=== PATIENT | female | born 1995 | race Caucasian/White ===

== ENCOUNTER 2017-03-01 13:10 | Emergency (ER) | payer OTHER, MEDICARE ==
[~2017-03-01] VITALS: Ht 157.5 cm; Wt 93.0 kg
[2017-03-01 13:14] VITALS: BP 149/81; PULSE 153; RESP 20; TEMP 97.9
--- NOTE | 2017-03-01 13:36 | PD ---
HPI Chief Complaint: Seizure Time Seen by Provider: 13:33 Travel History International Travel<30 days: No Contact w/Intl Traveler<30days: No Traveled to known affect area: No History of Present Illness HPI 21-year-old female that presents to the ED for evaluation of possible seizure. Patient had a possible seizure today will working in [employer]. Patient works at this facility. Patient had a witnessed seizure that lasted about 2 minutes where she lost consciousness and hit her head. She per report from people around her had rigors as well as some seizure-like activity as well as movements of the eye. Per patient she does have a history of seizures in the past but states that she takes nothing because she was told by her doctor that she did not have any seizures and was taken off all her medications. She has not taken anything for years. She does have a history of some underlying mental illness. She has an allergy to latex and Zithromax. She denies any drug abuse or alcohol abuse. She denies any chest pain or shortness of breath. She denies any pain of any kind. She does appear to be anxious on examination. PFSH Past Medical History ?: Not Social History Alcohol Use: No Tobacco Use: No Substance Use: No Allergies-Medications (Allergen,Severity, Reaction): Coded Allergies: Latex (Verified Allergy, Intermediate, 03/01/17) Zithromax (Verified Allergy, Intermediate, HIVES, 03/01/17) Review of Systems Except as stated in HPI: all other systems reviewed are Neg Physical Exam Narrative GENERAL: SKIN: Warm and dry. HEAD: Atraumatic. Normocephalic. EYES: Pupils equal and round 4 mm reactive to light and accommodation. No scleral icterus. No injection or drainage. ENT: No nasal bleeding or discharge. Mucous membranes pink and moist. Tongue is midline. No uvula deviation. NECK: Trachea midline. No JVD. CARDIOVASCULAR: Regular rate and rhythm. No murmurs, S3, S4. RESPIRATORY: No accessory muscle use. Clear to auscultation. Breath sounds equal bilaterally. GASTROINTESTINAL: Abdomen soft, non-tender, nondistended. Hepatic and splenic margins not palpable. MUSCULOSKELETAL: Extremities without clubbing, cyanosis, or edema. No obvious deformities. Full range of motion of the upper and lower extremities bilaterally. 2+ pulses bilaterally. No lumbar, thoracic, cervical spine tenderness to palpation. NEUROLOGICAL: Awake and alert and oriented 4. No obvious cranial nerve deficits. Motor grossly within normal limits. Five out of 5 muscle strength in the arms and legs. Normal speech. PSYCHIATRIC: Anxious mood and affect; insight and judgment normal. Data Data Last Documented VS Vital Signs Date Time Temp Pulse Resp B/P Pulse Ox O2 Delivery O2 Flow Rate FiO2 03/01/17 13:14 97.9 153 20 149/[address] Brain W/O Iv Contrast(Rout) (03/01/17 13:13) Ct Cerv Spine W/O Contrast (03/01/17 13:13) Electrocardiogram (03/01/17 13:13) Complete Blood Count With Diff (03/01/17 13:13) Basic Metabolic Panel (Bmp) (03/01/17 13:13) Urinalysis - C+S If Indicated (03/01/17 13:13) Magnesium (Mg) (03/01/17 13:13) Thyroid Stimulating Hormone (03/01/17 13:13) Iv Access Insert/Monitor (03/01/17 13:13) Ed Urine Pregnancytest Poc (03/01/17 13:13) Labs Laboratory Tests Test 03/01/17 03/01/17 13:45 13:49 Urine Color YELLOW Urine Turbidity CLEAR Urine pH 5.0 Urine Specific [place] 1.022 Urine Protein TRACE mg/dL Urine Glucose (UA) 1000 mg/dL Urine Ketones NEG mg/dL Urine Occult Blood SMALL Urine Nitrite NEG Urine Bilirubin NEG Urine Urobilinogen LESS THAN 2.0 MG/DL Urine Leukocyte Esterase NEG Urine RBC 1 /hpf Urine WBC 2 /hpf Urine Squamous Epithelial 1 /hpf Cells Urine Hyaline Casts 1 /lpf Urine Mucus FEW /lpf Urine Yeast (Budding) RARE Microscopic Urinalysis Comment CULT NOT INDICATED White Blood Count 9.1 TH/MM3 Red Blood Count 5.72 MIL/MM3 Hemoglobin 14.2 GM/DL Hematocrit 43.4 % Mean Corpuscular Volume 75.8 FL Mean Corpuscular Hemoglobin 24.9 PG Mean Corpuscular Hemoglobin 32.8 % Concent Red Cell Distribution Width 14.8 % Platelet Count 169 TH/MM3 Mean Platelet Volume 8.6 FL Neutrophils (%) (Auto) 69.3 % Lymphocytes (%) (Auto) 23.4 % Monocytes (%) (Auto) 6.4 % Eosinophils (%) (Auto) 0.4 % Basophils (%) (Auto) 0.5 % Neutrophils # (Auto) 6.3 TH/MM3 Lymphocytes # (Auto) 2.1 TH/MM3 Monocytes # (Auto) 0.6 TH/MM3 Eosinophils # (Auto) 0.0 TH/MM3 Basophils # (Auto) 0.0 TH/MM3 CBC Comment DIFF FINAL Differential Comment Sodium Level 141 MEQ/L Potassium Level 3.6 MEQ/L Chloride Level 103 MEQ/L Carbon Dioxide Level 26.0 MEQ/L Anion Gap 12 MEQ/L Blood Urea Nitrogen 12 MG/DL Creatinine 0.55 MG/DL Estimat Glomerular Filtration 138 ML/MIN Rate Random Glucose 73 MG/DL Calcium Level 9.8 MG/DL Magnesium Level 2.1 MG/DL Thyroid Stimulating Hormone LESS THAN 3rd Gen 0.005 uIU/ML MDM Medical Decision Making Medical Screen Exam Complete: Yes Emergency Medical Condition: Yes Medical Record Reviewed: Yes Interpretation(s) CBC & BMP Diagram 03/01/17 13:49 TSH is low. Last Impressions Head CT 03/01/17 1313 Signed Impressions: Service Date/Time: Wednesday, March 01, 2017 13:26 - CONCLUSION: No acute abnormality is identified. Christian Pacheco MD Cervical Spine CT 03/01/17 1313 Signed Impressions: Service Date/Time: Wednesday, March 01, 2017 13:26 - CONCLUSION: 1. No acute cervical spine abnormality is identified. 2. Possible disc protrusion at C5- C6. Christian Pacheco MD Differential Diagnosis Seizure versus seizure like activity versus syncope versus presyncope Narrative Course 21-year-old female that presents to the ED for evaluation of possible seizure. Patient was properly examined and was found to have signs and symptoms consistent with possible seizure. Labs and imaging were ordered. Labs and imaging showed no sign of acute disease other than low TSH but patient does have a history of thyroid disease taking tyroid medication. Patient has had no more seizure events. Patient adamant she wants to go back to work. At this time I recommend follow-up with PCP as well as neurologist. This was discussed in my attending who agrees with plan. Instructed to not drive, operative heavy machinery, use ladders or go improves until medically cleared by neurologist. See ED worsening symptoms. Before patient was discharged she did complain that she's been having some ear pain on the left on and off for a couple weeks. Patient has not seen anybody for this. I evaluated the ear and she does have erythema on the TM. No sign of bulging. I will treat this with amoxicillin to cover for infection. She is in agreement with this plan. Patient was given note for work. She understands reasons to come back. Diagnosis Primary Impression: Seizure Additional Impression: Otitis media Qualified Code: H66.92 - Left otitis media, unspecified chronicity, unspecified otitis media type Referrals: Jon Zayas MD Patient Instructions: General Instructions Additional Instructions: Follow with PCP or neurologist for clearance and evaluation of the seizures. See ED for worsening symptoms. Take her medications prescribed by her doctor. Med/Other Pt SpecificInfo: No Change to Meds Scripts Amoxicillin 875 Mg [id number] Mg PO BID 10 Days Prov:Meenu Louise MD 03/01/17 Disposition: 01 DISCHARGE HOME Condition: Stable Olegario Penn March 01, 2017 13:36
--- NOTE | 2017-03-01 13:37 | RADRPT ---
EXAM DATE/TIME: 03/01/2017 13:26 [facility] COMPARISON: No previous studies available for comparison. INDICATIONS : Seizure. Possibly hit her head. Headache. RADIATION DOSE: 36.06 CTDIvol (mGy) MEDICAL HISTORY : None SURGICAL HISTORY : None. ENCOUNTER: Initial ACUITY: 1 day PAIN SCALE: 7/10 LOCATION: cranial TECHNIQUE: Multiple contiguous axial images were obtained of the head. Using automated exposure control and adj ustment of the mA and/or kV according to patient size, radiation dose was kept as low as reasonably a chievable to obtain optimal diagnostic quality images. FINDINGS: CEREBRUM: The ventricles are normal. No evidence of midline shift, mass lesion, hemorrhage or acute infarction . No extra-axial fluid collections are seen. POSTERIOR FOSSA: The cerebellum and brainstem demonstrate no abnormality. The 4th ventricle is midline. The cerebell opontine angle is unremarkable. EXTRACRANIAL: The visualized portion of the orbits is intact. SKULL: The calvaria is intact. No evidence of skull fracture. CONCLUSION: No acute abnormality is identified. Christian Pacheco MD on March 01, 2017 at 13:34 Board Certified Radiologist. This report was verified electronically.
--- NOTE | 2017-03-01 13:49 | RADRPT ---
EXAM DATE/TIME: 03/01/2017 13:26 [facility] COMPARISON: CT BRAIN W/O CONTRAST, March 01, 2017, 13:26. INDICATIONS : Seizure. Possibly hit her head. Headache. RADIATION DOSE: 36.06 CTDIvol (mGy) MEDICAL HISTORY : Seizures. SURGICAL HISTORY : None. ENCOUNTER: Initial ACUITY: 1 day PAIN SCALE: 7/10 LOCATION: neck TECHNIQUE: Volumetric scanning of the cervical spine was performed. Multiplanar reconstructions in the sagittal, coronal and oblique axial planes were performed. Using automated exposure control and adjustment o f the mA and/or kV according to patient size, radiation dose was kept as low as reasonably achievable to obtain optimal diagnostic quality images. FINDINGS: There is normal sagittal spine alignment of the cervical spine. No anterolisthesis or retrolisthesis is present. The atlantoaxial relationship is within normal limits. There is no prevertebral soft tiss ue swelling present. No fracture or dislocation is identified. There is a central left paracentral di sc protrusion at C5-C6. The visualized portions of the posterior fossa, paraspinous soft tissues, and upper lung zones demons trate no acute abnormality. CONCLUSION: 1. No acute cervical spine abnormality is identified. 2. Possible disc protrusion at C5-C6. Christian Pacheco MD on March 01, 2017 at 13:44 Board Certified Radiologist. This report was verified electronically.
[2017-03-01 13:56] LABS: AUTOMATED NEUTROPHIL # 6.3 TH/MM3 (1.8-7.7); BASOPHIL % 0.5 % (0.0-2.0); EOSINOPHIL % 0.4 % (0.0-4.0); HEMATOCRIT 43.4 % (35.0-46.0); HEMO FLAGS DIFF FINAL; LYMPH % 23.4 % (9.0-44.0); LYMPHOCYTE # 2.1 TH/MM3 (1.0-4.8); MEAN CELL VOLUME 75.8 FL (80.0-100.0); MEAN CORPUSCULAR HEMOGLOBIN 24.9 PG (27.0-34.0); MEAN CORPUSCULAR HGB CONC 32.8 % (32.0-36.0); MONO % 6.4 % (0.0-8.0); NEUT % 69.3 % (16.0-70.0); PLATELET COUNT 169 TH/MM3 (150-450); RED BLOOD COUNT 5.72 MIL/MM3 (4.00-5.30); RED CELL DISTRIBUTION WIDTH 14.8 % (11.6-17.2); WHITE BLOOD COUNT 9.1 TH/MM3 (4.0-11.0)
[2017-03-01 14:09] LABS: BLOOD, URINE SMALL (NEG); COMMENT (UR) CULT NOT INDICATED; CULTURE IF INDICATED CULT NOT INDICATED; GLUCOSE,URINE 1000 mg/dL (NEG); HYALINE CAST, URINE 1 /lpf (RARE); KETONE, URINE NEG (NEG); MUCUS URINE FEW /lpf (OCC); NITRITE,URINE NEG (NEG); SQUAMOUS EPITHELIAL CELL URINE 1 /hpf (0-5); URINE COLOR YELLOW (YELLW/STRAW)
[2017-03-01 14:20] LABS: ANION GAP 12 MEQ/L (5-15); BLOOD UREA NITROGEN 12 MG/DL (7-18); CHLORIDE 103 MEQ/L (98-107); GLOMERULAR FILTRATION RATE 138 ML/MIN (>89); MAGNESIUM 2.1 MG/DL (1.5-2.5); POTASSIUM 3.6 MEQ/L (3.5-5.1); SODIUM (NA) 141 MEQ/L (136-145)
[2017-03-01] MEDS ORDERED: AMOX875T PO (14:51)
--- NOTE | 2017-03-01 17:07 | EKG ---
Date Performed: 03/01/2017 Time Performed: 14:17:21 PTAGE: 21 years EKG: SINUS TACHYCARDIA WITH SHORT IN INTERVAL Nonspecific ST-T wave changes ABNORMAL ECG NO PREVIOUS TRACING DOCTOR: Daryl Herrera Interpretating Date/Time 03/01/2017 17:05:24
== END 2017-03-01 15:00 | disposition home or self-care (01) ==
LOC: NEPE 13:10
DX: R56.9 Unspecified convulsions (principal); H66.92 Otitis media, unspecified, left ear; E07.9 Disorder of thyroid, unspecified
CPT/HCPCS: 70450; 72125; 80048; 81001; 83735; 84443; 84703; 85025; 93005; 99285

== ENCOUNTER 2017-03-20 11:32 | Emergency (ER) | payer OTHER, MEDICARE ==
[~2017-03-20 11:32] MED LIST: AMOX875T PO
[2017-03-20 11:35] VITALS: BP 137/87; PULSE 119; RESP 16; TEMP 98.1; O2SAT 97
[2017-03-20] MEDS ORDERED: LEVO125T4 PO (11:51)
[2017-03-20] MEDS ORDERED: METF1000 PO (11:51)
[2017-03-20] MEDS ORDERED: INSU1INJ14 SQ (11:51)
[2017-03-20] MEDS ORDERED: EMPA1TAB PO (11:51)
[2017-03-20] MEDS ORDERED: ALBI1INJ2 SQ (11:51)
[2017-03-20] MEDS ORDERED: FEXO15TA PO (11:52)
[2017-03-20] MEDS ORDERED: METH36 PO (11:52)
[2017-03-20] MEDS ORDERED: FLUT1SPR5 EACH NARE (11:52)
[2017-03-20] MEDS ORDERED: IBUPROFEN 800 MG TAB PO ONE (12:00)
--- NOTE | 2017-03-20 12:06 | PD ---
HPI Chief Complaint: Musculoskeletal Complaint Time Seen by Provider: 12:02 Travel History International Travel<30 days: No Contact w/Intl Traveler<30days: No Traveled to known affect area: No History of Present Illness HPI 21-year-old female presents to the emergency Department with complaint of left foot/toe pain after dropping a plate warmer landed on her foot. She is a [employer] employee and works in [employer] and this occurred at work today. Denies paresthesias, loss of sensation, decreased range of motion, decreased strength to the affected extremity. Has been walking on the affected extremity. Has not taken any medications or tried any treatments to repeat her symptoms. Pain is worse with walking. Allergies to latex and Zithromax. Patient is insulin dependent diabetic. I noted some jitteriness on physical exam and she states that she thinks her blood sugar may be low and she has not eaten lunch yet. She has no other medical complaints. No other modifying factors or associated signs and symptoms. PFSH Past Medical History Diabetes: Yes (METFORMIN/TRESIBA,JARDANCE TANZIUM) ?: Not Social History Alcohol Use: No Tobacco Use: No Substance Use: No Allergies-Medications (Allergen,Severity, Reaction): Coded Allergies: Latex (Verified Allergy, Intermediate, 03/20/17) Zithromax (Verified Allergy, Intermediate, HIVES, 03/20/17) Reported Meds & Prescriptions Reported Meds & Active Scripts Active Ibuprofen 800 Mg Tab 800 Mg PO Q6HR PRN Reported Flonase Nasal Anderson (Fluticasone Nasal Anderson) 50 Mcg/Act Anderson 50 Mcg EACH NARE BID Jolynn Allergy (Fexofenadine HCl) 180 Mg Tab 180 Mg PO DAILY Concerta (Methylphenidate HCl) 36 Mg [place]akan 36 Mg PO DAILY Tanzeum 4-Pack Inj (Albiglutide) 50 Mg Pfpen 50 Mg SQ Q7D Levothyroxine (Levothyroxine Sodium) 125 Mcg Tab 250 Mcg PO DAILY Tresiba Flextouch Pen Inj (Insulin Degludec Inj) 300 unit/3 ML Pen 50 Units SQ HS Metformin (Metformin HCl) 1,000 Mg Tab 1,000 Mg PO BIDPC With meals Jardiance (Empagliflozin) 10 Mg Tab 10 Mg PO DAILY Review of Systems Except as stated in HPI: all other systems reviewed are Neg Physical Exam Narrative GENERAL: Well-nourished, well-developed female patient, in no acute distress SKIN: Warm and dry. HEAD: Atraumatic. Normocephalic. EYES: Pupils equal and round. No scleral icterus. No injection or drainage. ENT: Mucosa pink and moist. Airway patent. NECK: Trachea midline. CARDIOVASCULAR: Regular rate. RESPIRATORY: No accessory muscle use. GASTROINTESTINAL: Rounded. MUSCULOSKELETAL: Left foot with tenderness on palpation just below and to the second, third, fourth toe; without erythema, edema, ecchymosis; sensory intact medical no obvious deformity. Left lower extremities supple and non-tense with 2+ pedal pulse and sensory intact without erythema or edema. No obvious deformities. No clubbing. No cyanosis. No edema. NEUROLOGICAL: Awake and alert. Oriented 3. No obvious cranial nerve deficits. Motor grossly within normal limits. Normal speech. PSYCHIATRIC: Appropriate mood and affect; insight and judgment normal. Data Data Last Documented VS Vital Signs Date Time Temp Pulse Resp B/P Pulse Ox O2 Delivery O2 Flow Rate FiO2 03/20/17 11:35 98.1 119 16 137/87 97 Orders Foot, Complete ([id number]) (03/20/17 11:55) Ibuprofen (Motrin) (03/20/17 12:00) Shoe Post Op (03/20/17 ) MDM Medical Decision Making Medical Screen Exam Complete: Yes Emergency Medical Condition: Yes Medical Record Reviewed: Yes Differential Diagnosis Foot fracture, toe fracture, foot contusion, low blood sugar Narrative Course 21-year-old female, [employer] employee, with left foot injury. Ibuprofen administered in the ER. Left foot x-ray ordered. 1201: Blood sugar checked at bedside secondary to patient being jittery and stating her blood pressure may below. BGM 68. Patient given orange juice. 1235: Left foot x-ray is no acute findings. 1240: Blood sugar recheck 88. Patient states she feels better and is not jittery anymore. Patient asking for nathalie crackers and nathalie crackers given. Ibuprofen prescribed for home. Postop shoe provided for support. I offered the patient crutches for support and she declined at this time. Patient verbalizes understanding and agreement with treatment plan. Patient is medically cleared and stable for discharge. Discussed reasons to return to the emergency department. Instructed patient to follow up with primary care provider. Patient agrees with treatment plan. The patients vital signs are stable and the patient is stable for outpatient follow-up and treatment. Patient discharged home, stable and in no acute distress. Diagnosis Primary Impression: Contusion of left foot Qualified Code: S90.32XA - Contusion of left foot, initial encounter Additional Impression: Low blood sugar reading Referrals: Primary Care Physician Patient Instructions: Foot Contusion (ED), General Instructions Departure Forms: Tests/Procedures, Work Release Enter return to work date: Mar 21, 2017 Additional Instructions: Tylenol or ibuprofen as directed and as needed for pain and inflammation Rest, ice, compress, and elevate extremity to decrease pain and inflammation Crutches for support as needed Avoid aggravating activity; increase activity as tolerated Follow-up with primary care provider Return to the emergency department immediately with worsening of symptoms Med/Other Pt SpecificInfo: Prescription(s) given Scripts Ibuprofen 800 Mg [id number] Mg PO Q6HR PRN (PAIN) #30 TAB Ref 0 Prov:Karen Esparza 03/20/17 Disposition: 01 DISCHARGE HOME Condition: Stable Karen Esparza Mar 20, 2017 12:06
--- NOTE | 2017-03-20 12:25 | RADRPT ---
EXAM DATE/TIME: 03/20/2017 12:19 [facility] COMPARISON: No previous studies available for comparison. INDICATIONS : Left foot pain, dropped plate lid on foot. MEDICAL HISTORY : None. SURGICAL HISTORY : None. ENCOUNTER: Initial ACUITY: 1 day PAIN SCORE: 5/10 LOCATION: Left third and fourth metatarsals FINDINGS: Three view examination of the left foot demonstrates no soft tissue swelling, dislocation, or fractur e. The tarsal bones appear intact. The interphalangeal and metatarsophalangeal joints are intact. The calcaneus is intact. Bony mineralization is normal. CONCLUSION: 1. Negative examination. Everton Bynum MD on March 20, 2017 at 12:22 Board Certified Radiologist. This report was verified electronically.
[2017-03-20] MEDS ORDERED: IBUP800T23 PO (12:32)
== END 2017-03-20 12:49 | disposition home or self-care (01) ==
LOC: NEPK 11:32
DX: S90.32XA Contusion of left foot, initial encounter (principal); E11.9 Type 2 diabetes mellitus without complications; Z79.4 Long term (current) use of insulin
CPT/HCPCS: 73630; 99283; L3260